=== PATIENT | female | born 1985 | race Caucasian/White ===

== ENCOUNTER 2021-11-09 10:04 | Emergency (ER) | payer OTHER ==
[~2021-11-09] VITALS: Ht 165.1 cm; Wt 60.8 kg
[2021-11-09 10:19] VITALS: BP 106/72
[2021-11-09] MEDS ORDERED: LIDOCAINE 1% INJ 50 ML MDV IJ ONE (10:51)
[2021-11-09] MEDS ORDERED: CLIN300C12 PO (12:04)
[2021-11-09] MEDS ORDERED: CEPH500T PO (12:04)
--- NOTE | 2021-11-09 12:57 | NUR ---
Patient discharged to home in stable condition. Written and verbal after care instructions given. Patient verbalizes understanding of instruction.
== END 2021-11-09 12:57 | disposition home or self-care (01) ==
LOC: ER 10:19
DX: N75.1 Abscess of Bartholin's gland (principal)
CPT/HCPCS: 56420; 99284; J3490